=== PATIENT | male | born 1980 | race Caucasian/White ===

== ENCOUNTER 2018-02-03 14:45 | Emergency (ER) | payer OTHER ==
[~2018-02-03] VITALS: Ht 185.4 cm; Wt 85.0 kg
[2018-02-03 14:49] VITALS: TEMP 36.4; Ht 185.4 cm; Wt 85.0 kg
[2018-02-03] MEDS ORDERED: CYANOCOBALAMIN 500 MCG TAB (VIT B-12) PO STA (14:50)
[2018-02-03] MEDS ORDERED: PYRIDOXINE HCL 50 MG TAB PO STA (14:50)
--- NOTE | 2018-02-03 14:51 | EMERGENCY ROOM VISIT NOTE ---
History Report prepared by Linnette: Leonel Medrano Under the Supervision of: Dr. Gagan Corona M.D. First contact with patient: 14:46 Stated Complaint: FALL/ETOH History of Present Illness The patient is a 37 year old male who presents to the Emergency Room with complaints of a head injury following a single episode fall occurring today. The patient states that he tripped today when he was going to the wine store. Per nurse, the patient was found unconscious by his fiancee. The patient denies losing consciousness and notes that he does not have a headache. HPI limited secondary to alcohol intoxication. Source of History: patient, nursing staff History Limited By: intoxication Onset: today Position: head Timing: other (an episode) Associated Symptoms: No headache Note: Per nurse, the patient was found unconscious; however, the patient denies losing conscious. Review of Systems ROS limited secondary to alcohol intoxication. Past Medical & Surgical Medical Problems: (1) No chronic problems Family History No pertinent family history stated. Social History Smoking Status: Current Every Day Smoker Marital Status: other (engaged) Housing Status: lives with family Occupation Status: employed Current/Historical Medications Scheduled Bacitracin (Topical) (Bacitracin), 1 APPLN TOP BID Allergies Coded Allergies: No Known Allergies (Unverified , 02/03/18) Physical Exam Vital Signs Date Time Temp Pulse Resp B/P (MAP) Pulse Ox O2 Delivery O2 Flow Rate FiO2 02/03/18 16:15 98 20 146/92 100 02/03/18 14:52 Room Air 02/03/18 14:49 36.4 121 18 170/96 97 Physical Exam GENERAL: Awake, alert, well-appearing, in no acute distress, intoxicated, smells highly of alcohol. HENT: Normocephalic. Oropharynx unremarkable. Abrasion to the right side of the forehead and nose, not suturable. EYES: Normal conjunctiva. Sclera non-icteric. NECK: Supple. No nuchal rigidity. FROM. No JVD. RESPIRATORY: Clear to auscultation. CARDIAC: Regular rate, normal rhythm. Extremities warm and well perfused. Pulses equal. ABDOMEN: Soft, non-distended. No tenderness to palpation. No rebound or guarding. No masses. RECTAL: Deferred. MUSCULOSKELETAL: Chest examination reveals no tenderness. The back is symmetrical on inspection without obvious abnormality. There is no CVA tenderness to palpation. No joint edema. LOWER EXTREMITIES: Calves are equal size bilaterally and non-tender. No edema. No discoloration. NEURO: Normal sensorium. No sensory or motor deficits noted. SKIN: No rash or jaundice noted. 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 Paranasal sinuses and mastoid air cells clear. Bony nasal septum midline deviated to the right without evidence of an acute fracture. Bones intact. Mandible and teeth intact though dental caries are evident. Temporal mandibular joints intact. Orbits intact. Soft tissues of the face within normal limits. IMPRESSION: No acute osseous injury of the face. Electronically signed by: Luis Hummel M.D. 02/03/2018 3:28 PM HEAD WITHOUT CONTRAST (CT) FINDINGS: Oyster Unloader topogram: Unremarkable. Ventricles and sulci normal in size. Brain parenchyma normal in appearance with preserved baires-white differentiation. No mass effect or midline shift. No hemorrhage or acute territorial infarct. No extra-axial fluid collection. Paranasal sinuses and mastoid air cells clear. Calvarium intact. IMPRESSION: 1. No acute intracranial abnormality. Electronically signed by: Luis Hummel M.D. 02/03/2018 3:32 PM CERVICAL SPINE W/O FINDINGS: Oyster Unloader topogram: Unremarkable. Normal cervical lordosis. Vertebral bodies maintain normal height and alignment. Intervertebral discs is maintained. No acute fracture or subluxation. Minimal focal disc osteophyte complex suggested at C5-6. This may mildly efface the ventral spinal canal. No osseous neural foraminal narrowing. Positional rotatory subluxation of C1 to the skull base. Skull base intact. Soft tissues of the neck within normal limits allowing for noncontrast technique. Lung apices clear. IMPRESSION: No acute osseous injury of the cervical spine. Electronically signed by: Luis Hummel M.D. 02/03/2018 3:39 PM Medications Administered Medications (Trade) Dose Ordered Sig/Martita Route Start Time Stop Time Status Last Admin Dose Admin Folic Acid (Folvite Tab) 1 mg NOW STAT PO 02/03/18 14:50 02/03/18 14:53 DC 02/03/18 15:31 1 MG Pyridoxine HCl (Vitamin B-6 Tab) 50 mg NOW STAT PO 02/03/18 14:50 02/03/18 14:53 DC 02/03/18 15:32 50 MG Cyanocobalamin (Vitamin B-12 Tab) 500 mcg NOW STAT PO 02/03/18 14:50 02/03/18 14:53 DC 02/03/18 15:31 500 MCG ED Course 1448: Past medical records reviewed. The patient was evaluated in room B12 A complete history and physical examination was performed. 1450: Cyanocobalamin 500mcg PO, Pyridoxine HCl 50mg PO, Folic Acid 1mg PO 1559: Upon reexamination the patient is stable. I discussed results and treatment plan with the patient. He verbalizes agreement and understanding. The patient is ready for discharge. Medical Decision Differential diagnosis: Etiologies such as fracture, dislocation, intra-abdominal, pneumothorax, intrathoracic , intracranial, neurologic, as well as other traumatic pathologies were entertained. This is a 37-year-old male presents to the emergency department after a fall at home. The patient was found to be unresponsive by EMS for this reason he was brought to the emergency department. The patient is grossly intoxicated. He was sent for CAT scan of the head face and neck. This did not show any evidence of fracture dislocation or subluxation. The patient's fiance arrived and is clinically sober. She is willing to take care of the patient for the rest of the evening. The patient refused any laboratory work. He was given folic acid and thiamine in the emergency department. I offered rehab for the patient however he refused. Head Trauma GCS Score: 15 Medication Reconcilliation Current Medication List: was personally reviewed by me Blood Pressure Screening Patient's blood pressure: Elevated blood pressure Blood pressure disposition: Referred to PCP Impression Primary Impression: Fall Additional Impression: Head injury Scribe Attestation The scribe's documentation has been prepared under my direction and personally reviewed by me in its entirety. I confirm that the note above accurately reflects all work, treatment, procedures, and medical decision making performed by me. Departure Information Dispostion Home / Self-Care Prescriptions Bacitracin (Topical) (BACITRACIN) 500 Unit/Gm Oin 1 APPLN TOP BID for 7 Days, #30 GM Prov: Gagan Corona MD 02/03/18 Referrals Teller, Ziyad E.,III,M.D. (PCP) Forms HOME CARE DOCUMENTATION FORM, IMPORTANT VISIT INFORMATION Patient Instructions [facility] Additional Instructions You have been examined and treated today on an emergency basis only. This is not a substitute for, or an effort to provide, complete comprehensive medical care. It is impossible to recognize and treat all injuries or illnesses in a single emergency department visit. It is therefore important that you follow up closely with Dr Johnson. Call as soon as possible for an appointment. Thank you for your time and consideration. I look forward to speaking with you again soon. Please don't hesitate to call us if you have any questions. Problem Qualifiers Primary Impression: Fall Encounter type: initial encounter Qualified Codes: W19.XXXA - Unspecified fall, initial encounter Additional Impression: Head injury Encounter type: initial encounter Qualified Codes: S09.90XA - Unspecified injury of head, initial encounter
--- NOTE | 2018-02-03 15:29 | DIAGNOSTIC IMAGING REPORT ---
FACIAL BONES-MXILLOFAC WITHOUT CLINICAL HISTORY: 37 years-old Male presenting with Pt c/o head injury, facial abrasions, unwitnessed fall, EtOH, altered mental status. TECHNIQUE: Multidetector CT of the face was performed without the use of intravenous contrast. IV contrast: None. A dose lowering technique was used consistent with the principles of ALARA (as low as reasonably achievable). COMPARISON: None. CT DOSE (mGy.cm): The estimated cumulative dose is 1040.95. FINDINGS: Terminal System Operator topogram: Unremarkable. Paranasal sinuses and mastoid air cells clear. Bony nasal septum midline deviated to the right without evidence of an acute fracture. Bones intact. Mandible and teeth intact though dental caries are evident. Temporal mandibular joints intact. Orbits intact. Soft tissues of the face within normal limits. IMPRESSION: No acute osseous injury of the face. Electronically signed by: Luis Hummel M.D. 02/03/2018 3:28 PM Dictated Date/Time: 02/03/2018 3:25 PM
--- NOTE | 2018-02-03 15:33 | DIAGNOSTIC IMAGING REPORT ---
HEAD WITHOUT CONTRAST (CT) CLINICAL HISTORY: 37 years-old Male presenting with Pt c/o AMS, unwitnessed fall, facial abrasions, EtOH. TECHNIQUE: Multidetector CT imaging of the head was performed without the use of intravenous contrast. IV contrast: None. A dose lowering technique was used consistent with the principles of ALARA (as low as reasonably achievable). COMPARISON: None. CT DOSE (mGy.cm): The estimated cumulative dose is 1040.95 mGy.cm. FINDINGS: Fast Food Shift Lead topogram: Unremarkable. Ventricles and sulci normal in size. Brain parenchyma normal in appearance with preserved baires-white differentiation. No mass effect or midline shift. No hemorrhage or acute territorial infarct. No extra-axial fluid collection. Paranasal sinuses and mastoid air cells clear. Calvarium intact. IMPRESSION: 1. No acute intracranial abnormality. Electronically signed by: Luis Hummel M.D. 02/03/2018 3:32 PM Dictated Date/Time: 02/03/2018 3:28 PM
--- NOTE | 2018-02-03 15:40 | DIAGNOSTIC IMAGING REPORT ---
CERVICAL SPINE W/O CLINICAL HISTORY: 37 years-old Male presenting with Pt c/o head injury, unwitnessed fall, facial abrasions, EtOH, altered mental status. TECHNIQUE: Multidetector CT of the cervical spine was performed without the use of intravenous contrast. IV contrast: None. A dose lowering technique was used consistent with the principles of ALARA (as low as reasonably achievable). COMPARISON: None. CT DOSE (mGy.cm): The estimated cumulative dose is 1040.95. FINDINGS: Sheriff Officer topogram: Unremarkable. Normal cervical lordosis. Vertebral bodies maintain normal height and alignment. Intervertebral discs is maintained. No acute fracture or subluxation. Minimal focal disc osteophyte complex suggested at C5-6. This may mildly efface the ventral spinal canal. No osseous neural foraminal narrowing. Positional rotatory subluxation of C1 to the skull base. Skull base intact. Soft tissues of the neck within normal limits allowing for noncontrast technique. Lung apices clear. IMPRESSION: No acute osseous injury of the cervical spine. Electronically signed by: Luis Hummel M.D. 02/03/2018 3:39 PM Dictated Date/Time: 02/03/2018 3:36 PM
[2018-02-03] MEDS ORDERED: BACI500O11 TOP (15:49)
[2018-02-03 16:15] VITALS: BP 146/92; PULSE 98; O2SAT 100
== END 2018-02-03 16:16 | disposition home or self-care (01) ==
LOC: EDBD 14:45 → C.EDB 14:46
DX: S00.81XA Abrasion of other part of head, initial encounter (principal); S00.31XA Abrasion of nose, initial encounter; W19.XXXA Unspecified fall, initial encounter; Y92.009 Unspecified place in unspecified non-institutional (private) residence as the place of occurrence of the external cause; R03.0 Elevated blood-pressure reading, without diagnosis of hypertension; F17.200 Nicotine dependence, unspecified, uncomplicated